=== PATIENT | female | born 1995 | race Caucasian/White ===

== ENCOUNTER 2020-04-15 07:41 | Outpatient (REF) | payer SELFPAY ==
[2020-04-15 08:31] LABS: COVID-19 Test Negative (Negative)
== END 2020-04-15 07:42 | disposition home or self-care (01) ==
LOC: HO.LAB 07:41
PROVIDERS: Visit Provider Internal Medicine
DX: Z20.828 Contact with and (suspected) exposure to other viral communicable diseases (principal)
CPT/HCPCS: 87635

== ENCOUNTER 2020-06-26 06:32 | Outpatient (REF) | payer OTHER, SELFPAY ==
[2020-06-26 06:50] LABS: COVID-19 Test Negative (Negative)
== END 2020-06-26 06:33 | disposition home or self-care (01) ==
LOC: HO.EMPCOV 06:32
PROVIDERS: Visit Provider Internal Medicine
DX: Z20.822 Contact with and (suspected) exposure to COVID-19 (principal)
CPT/HCPCS: 36415; 87635; C9803

== ENCOUNTER 2020-06-28 15:11 | Outpatient (REF) | payer OTHER, SELFPAY ==
[2020-06-28 15:36] LABS: COVID-19 Test Negative (Negative); IDNOW Serial# 55D5AD1C
== END 2020-06-28 15:12 | disposition home or self-care (01) ==
LOC: HO.EMPCOV 15:11
PROVIDERS: Visit Provider Internal Medicine
DX: Z20.822 Contact with and (suspected) exposure to COVID-19 (principal)
CPT/HCPCS: 36415; 87635; C9803